=== PATIENT | female | born 1955 | race Two or more races ===

== ENCOUNTER 2019-11-10 06:00 | Day surgery (SDC) | payer OTHER ==
[~2019-11-10 06:00] MED LIST: AZO STANDARD95 MG PO; INTEGRA F CAPS1 EACH PO; INTESTINEX1 CA1 PO; PROTONIX40 MG PO; SEPTRA DS TABLE1 TAB PO; ULTRACET PO
== END 2019-11-10 10:44 | disposition home or self-care (01) ==
LOC: AMB-ENDOS 06:00 → CIR.AMB 12:00 → AMB-ENDOS 12:00
DX: C18.2 Malignant neoplasm of ascending colon (principal); K64.8 Other hemorrhoids